=== PATIENT | male | born 1950 | race Caucasian/White ===

== ENCOUNTER 2016-08-12 12:23 | Day surgery (SDC) | payer MEDICARE, OTHER ==
[~2016-08-12] VITALS: Ht 177.8 cm; Wt 127.5 kg
[~2016-08-12 12:23] MED LIST: ASPI-973 PO; ATOR20TA PO; CLOP75TA3 PO; FOLI1TAB18 PO; FURO40TA4 PO; LOSA50TA37 PO; Lactated Ringer's 1,000 ML IV ONE; METO-272 PO; MULT-1073 PO; NIFE60TA9 PO; RIBA200C13 PO; SOFO400T PO; TELM80TA PO
[2016-08-12] MEDS ORDERED: Propofol 10,000 mCg/mL 20 mL Inj ONE (12:24)
[2016-08-12] MEDS ORDERED: Lidocaine PF 1% 30 mL Inj ONE (12:24)
[2016-08-12 13:17] VITALS: BP 128/66; PULSE 63; RESP 16; O2SAT 99
[2016-08-12] MEDS ORDERED: Lactated Ringer's 1,000 ML IV SCH (14:06)
--- NOTE | 2016-08-12 14:06 | PCM.HPANE ---
Patient Data Date of Service: Aug 12, 2016 Surgeon Admitting Provider: Attending Provider:Perico Renee MD [facility] Other Provider:Kirstie Ferreira Anesthesia Reason for Visit Atrial Septal Defect, Hepitatic Cirrhosis Ht/WT & BMI Height (Feet): 5 Height (Inches): 10 Weight (Kilograms): 127.46 Body Mass Index 40.00 Allergies Coded Allergies: No Known Allergies (Verified , 08/12/16) Past Anesthesia History Anesthesia History: Denies:: Anesthesia Reactions Diabetes History Hx Diabetes?: No MRSA MRSA: No Medications Blood Thinner: Aspirin, Plavix Last Dose Blood Thinner: Aug 12, 2016 Home Meds Incl Beta Edward: Yes Date Beta Edward Taken: Aug 12, 2016 Time Beta Edward Taken: 0800 Reported Medications Metoprolol Succinate ER 50 Mg Tab.er.24h25 Mg PO HS Ref 0 04/07/16 Losartan Potassium 50 Mg Tmfsso79 Mg PO DAILY 04/07/16 Metoprolol Succinate ER 50 Mg Tab.er.24h50 Mg PO MORNING Ref 0 02/08/16 Clopidogrel Bisulfate (Plavix)75 Mg Ezwvsg34 Mg PO DAILY 30 Days Ref 0 02/07/16 Atorvastatin (Lipitor)20 Mg Ubzfcj60 Mg PO HS Ref 0 02/07/16 Multivits-Min/FA/Lycopene/Lut (Centrum Silver Tablet)1 Each Tablet1 Each PO DAILY 02/06/16 Aspirin 81 Mg Pteqhk94 Mg PO DAILY Ref 0 02/06/16 Furosemide 40 Mg Egnhfh76 Mg PO DAILY 02/06/16 Folic Acid 1 Mg Tablet1 Mg PO DAILY 30 Days 02/06/16 Telmisartan (Micardis)80 Mg Suhfms47 Mg PO DAILY 02/06/16 Discontinued Reported Medications Nifedipine ER (Nifedical XL)60 Mg Tab.er.2460 Mg PO DAILY Ref 0 04/07/16 Ribavirin 200 Mg Xeoqimd917 Mg PO HS 02/06/16 Ribavirin 200 Mg Njoclmk228 Mg PO am 02/06/16 Sofosbuvir (Sovaldi)400 Mg Jvsirk379 Mg PO am 02/06/16 History History of ENT Problems?: No Hx of Heart Problems?: Yes (s/p stent 01/2016, PFO) Cardiovascular History: Positive for:: Cardiac Surgery (carotid and aortic artery repair, cardiac stent 02/05 ) Edema Hypertension Irregular Heartbeat (PVC'S) Denies:: Chest Pain Congestive Heart Failure Heart Murmur Hx of Respiratory Problem?: No Respiratory History: Positive for:: Dyspnea Denies:: Asthma Chest Surgery Pneumonia Tuberculosis Hx Neurologic Problems?: No Neurological History: Denies:: CVA Hx of GI Problems?: Yes Gastrointestinal History: Positive for:: Cirrhosis (portal hypertension, hepatocellular CA) Hepatitis (hep C) Liver Disease (HEP C-TREATED, 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) Hx of Problems?: No Musculoskeletal History: Positive for:: Joint Replacement (Right knee/Left hip ) Hx of Psycho/Social Problems?: No Hx Surgeries?: Yes (R knee/L hip/ aortic repair/middle finger R hand/hernia repair) Hx Any Other Health Problems?: Yes Other History: Positive for:: Cancer (liver CA) Hospitalization Denies:: Thyroid Disease History Blood Transfusions: Denies:: Blood Transfusions Hx Diabetes: No Hx Alcohol Use: NoHx Substance Use: No Smoking Status: Former Smoker Have You Smoked inLast 12 mo: No Stop/Bang Treated for Sleep Apnea?: No Do You Have a CPAP Machine?: No S-Snoring: Do You Snore Loudly: No T-Tired: feel tired, fatigued: No O-Obsered: Observed not breath: No P-Blood Pressure: treated: Yes B- Body Mass Index > 35 kg/m2: Yes A- Age over 50: Yes N- Neck Large Circumference: Yes G- Gender Male: Yes SARAH Total Score: 5 SARAH Risk Assessment: High Risk, =/>3 Yes SARAH Category 4 OutPt Procedure: Yes Risk Assessment Category Category 1A: Patient has history of documented sleep apnea, and HAS NOT received any narcotic, sedative or anesthesia administration during this stay. Category 1B: Patient has history of documented sleep apnea, and HAS received any narcotic , sedative or anesthesia administration during this stay Category 2: Patient has SUSPECTED Obstructive Sleep Apnea, and HAS received any narcotic , sedative or anesthesia administration during this stay. Category 3: Patient has SUSPECTED Obstructive Sleep Apnea and HAS NOT received narcotic, sedative or anesthesia administration during this stay. Category 4: Outpatient in Procedural Areas with known sleep apnea or who screen positive for High Risk via the STOP/BANG questionnaire. Exam Exam Vital Signs Vital Signs Date Time Temp Pulse Resp B/P Pulse Ox O2 Delivery O2 Flow Rate FiO2 1/24/17 13:17 37.2 63 16 128/66 99 Room Air General Appearance: Alert, Oriented X3, Cooperative HEENT/AIRWAY: MP 2, Neck Movement (Full), Mouth Opening (Wide) Lungs: Clear to Auscultation, Normal Air Movement Heart: Regular Rate/Rhythm, Normal S1, Normal S2 Plan Impression Patient chart reviewed, patient interviewed and anesthestic plan with risks, benefits, and alternatives discussed, and informed consent obtained. NPO Status: > 8 hours ASA Physical Status: ASA3 Severe Disease (Hepatitis C, hepatocellular CA, PFO, CAD) Anesthetic Plan: MAC Bene/Risks/Altern/Consents: Yes HP Complete Prior to Induction: Yes Lei Knight MD Aug 12, 2016 14:06
[2016-08-12] MEDS ORDERED: Ondansetron 2 mg/mL 2 mL Inj IVPUSH PRN (14:10)
[2016-08-12] MEDS ORDERED: MetoCLOpramide 5 mg/mL 2 mL Inj IVPUSH PRN (14:10)
--- NOTE | 2016-08-12 15:07 | ENDO ---
[address] [address] ENDOSCOPY PROCEDURE PATIENT: DEDE MARADIAGA : 1950 MR#: [id number] ADMIT: 08/12/2016 JOB ID: [id number] PROCEDURE: Esophagogastroduodenoscopy. INDICATIONS: A 65-year-old male with a history of cirrhosis status post successful HCV therapy. He reports for variceal screening. He is due to have a transesophageal echo examination immediately following our examination here today. He is on aspirin and Plavix. EQUIPMENT: GIF H 180 J. SEDATION: Monitored anesthesia as provided by Dr. Lei Knight. COMPLICATIONS: None identified. PROCEDURE INFORMATION: After the risks and benefits were explained, written and verbal informed consent was obtained. The patient was brought into the endoscopy suite and placed into the left lateral decubitus position. Sedation was achieved using the above-stated medications with the addition of oxygen via nasal cannula. The scope was introduced into the mouth through the bite block and advanced under direct visualization through the oropharynx, esophagus, stomach, and onto the second portion of the duodenum. The scope was slowly withdrawn to carefully examine the mucosa for any defects or lesions. Retroflexed views were accomplished in the stomach, the stomach was decompressed, and the scope removed from the patient, who tolerated the procedure well. FINDINGS: 1. Esophagus: In the distal esophagus. There were a couple of faint columns of varices that fully flattened out with air insufflation. No stigmata of any recent bleeding and no high-risk areas. A subtle sliding hiatal hernia was present. 2. Stomach: The patient had a diffuse portal gastropathy. I did not see any gastric varices, including with retroflexed views of the LES region. However, through the antrum and prepyloric there were several punctate ulcerations with some bland bases consistent with NSAID-induced injury. No mass lesions. No outlet obstruction. 3. Duodenum: There were a couple of other punctate ulcerations seen in the duodenum. Multiple photographs were taken of all of this. No sign of any ongoing active bleeding. No mass lesions. ENDOSCOPIC DIAGNOSES: 1. Multifocal peptic ulcer disease. 2. Gastropathy. 3. Very small distal esophageal varices. 4. Subtle sliding hiatal hernia. RECOMMENDATIONS: 1. H. pylori breath test tomorrow. 2. Then start once daily pantoprazole indefinitely as long as you remain on aspirin. 3. Repeat upper endoscopy in one year with anesthesia for variceal surveillance.
[2016-08-12 15:16] VITALS: BP 120/62; PULSE 57; RESP 16; O2SAT 99
--- NOTE | 2016-08-12 15:22 | PCM.ANEP1 ---
Post Anesthesia Phase 1 PACU Phase 1 Assessment Date of Service: Aug 12, 2016 Vital Signs Vital Signs Date Time Temp Pulse Resp B/P Pulse Ox O2 Delivery O2 Flow Rate FiO2 08/12/16 15:16 57 16 120/62 99 Room Air 08/12/16 13:17 37.2 63 16 128/66 99 Room Air Anesthetic Administered: MAC Level of Alertness: Awake, talking MEHTA's with Equal Strength: Yes Pain: No Nausea or Vomiting: No Oxygen Delivery: Room Air Lungs: Normal Air Movement Lei Knight MD Aug 12, 2016 15:22
--- NOTE | 2016-08-12 15:26 | PCM.ANEP2 ---
Post Anesthesia Evaluation ASA/CMS Post Anesthesia Date of Service: Aug 12, 2016 VS in Patient's Normal Range?: Yes Resp Stable; Airway Patent?: Yes CV Function & Hydration Stable: Yes Mental Status Recovered?: Yes Pain control Satisfactory?: Yes N/V Control Satisfactory?: Yes Lei Knight MD Aug 12, 2016 15:26
[2016-08-12 15:37] VITALS: BP 150/74; PULSE 59; RESP 16; O2SAT 100
[2016-08-12 15:47] VITALS: BP 146/64; PULSE 61; RESP 14; O2SAT 100
--- NOTE | 2016-08-13 16:41 | DRSVH ---
[facility] [address] [place] [address] Echocardiogram Report Name: DEDE MARADIAGA DStudy Date: 08/12/2016 Hospital Exam Location: [facility] Gender: Male : 1950 Age: 65 yrs BP: 121/65 mmHg Reason For Study: Atrial Septal Defect Ordering Physician: Perico ReneePerformed By: Amina Garrison Referring Physician: Sotero Mcdonnell Interpretation Summary A patent foramen ovale is present (Maximum diameter is about 0.9 cm). The atrial septum is aneurysmal. Injection of contrast documented an right to left interatrial shunt. In addition to PFO, there appears to be small secundum type of ASD as well (0.3 cm) with small left to right shunt on color doppler. Qp/Qs is 0.62. Right upper pulmonary vein drains in to the left atrium. An artifacts seen in the SVC ( Linear structure at the junction of SVC and the right atrium, appears to be a mirror image of superior limbus of interatrial septum). No thrombus is detected in the left atrial appendage. No left atrial mass or thrombus visualized. The tricuspid annulus is dilated. The tricuspid valve leaflets are thin and pliable. There is moderate tricuspid regurgitation. The left ventricle is grossly normal size. The ejection fraction is estimated to be 50-55%. The right ventricle is mild to moderately dilated at the base. Right ventricular systolic function is mildly reduced. Mild atherosclerotic plaque(s) in the aortic arch. Reviewed with Dr. Jc. Procedure: Informed consent for Transesophageal Echocardiogram, and use of a contrast agent as needed, was obtained prior to the procedure. The patient was brought to the endoscopy lab in a fasting state. An intravenous line was placed. A topical anesthetic agent was used for oropharangeal anesthesia. A bite block was inserted. Sedation was managed by anesthesiologist; see anesthesiology notes for details. A multifrequency, multiplane transesopheageal echocardiographic endoscope was inserted and manipulated in the standard fashion to achieve multiplane views. The transesophageal probe was passed without difficulty. A 2D transesophageal echocardiogram with spectral and color flow Doppler was performed. Additional imaging was obtained transthoracically. The patient tolerated the procedure well without evidence of orophangeal or esophageal trauma. Contrast injection with agitated saline was performed. The usual views were obtained; basal, mid- esophageal, transgastric and aortic views. There were no complications. Left Ventricle: The left ventricle is grossly normal size. The ejection fraction is estimated to be 50-55%. There is basal anterior wall hypokinesis. Right Ventricle: The right ventricle is mild to moderately dilated. Right ventricular systolic function is mildly reduced. Atria: No thrombus is detected in the left atrial appendage. No left atrial mass or thrombus visualized. A prominent eustachian valve is noted. The right atrium is moderately dilated. A patent foramen ovale is present. The atrial septal defect is small. The atrial septum is aneurysmal. Injection of contrast documented an interatrial shunt. Mitral Valve: The mitral valve leaflets are slightly calcified. There is mild mitral regurgitation. Aortic Valve: The aortic valve is trileaflet. The aortic valve opens well. There is no aortic valve stenosis. No aortic regurgitation is present. Tricuspid Valve: The tricuspid valve leaflets are thin and pliable. The tricuspid annulus is dilated. There is moderate tricuspid regurgitation. Pulmonic Valve: The pulmonic valve is not well seen, but is grossly normal. Great Vessels: Mild atherosclerotic plaque(s) in the aortic arch. Reading Physician:NEHEMIAS
== END 2016-08-12 23:59 | disposition home or self-care (01) ==
LOC: END 12:23
PROVIDERS: ATTEND Internal Medicine Gastroenterology
DX: K25.9 Gastric ulcer, unspecified as acute or chronic, without hemorrhage or perforation (principal); I85.00 Esophageal varices without bleeding; K44.9 Diaphragmatic hernia without obstruction or gangrene; Q21.1 Atrial septal defect; I25.10 Atherosclerotic heart disease of native coronary artery without angina pectoris; I24.8 Other forms of acute ischemic heart disease; I10 Essential (primary) hypertension; B18.2 Chronic viral hepatitis C; K74.60 Unspecified cirrhosis of liver; Z95.5 Presence of coronary angioplasty implant and graft; Z87.891 Personal history of nicotine dependence; Z79.82 Long term (current) use of aspirin; Z79.02 Long term (current) use of antithrombotics/antiplatelets; R60.0 Localized edema
CPT/HCPCS: 43235; C8925; J7120